=== PATIENT | female | born 1950 | race African-American/Black ===

== ENCOUNTER → 2016-07-14 | Outpatient (CLI) | payer BC, MEDICARE, OTHER ==
[~2016-07-14] MED LIST: ADVIL200 MG PO; ALEVE 220MG220 MG PO; ASPIRIN 32325 MG/TAB PO; BYSTOLIC10 MG PO; COREG12.5 MG PO; DYNACIRC CR10 MG PO; IBU800 M1 PO; LEVOTHYROXIN0.088 MG PO; NORCO 325 MG-7.1 TAB PO; TRIAMTERENE/HCT1 TAB PO; TYLENOL 500MG500 MG PO; VASOTEC 10M10 MG/TAB PO; ZOLPIDEM10 MG PO; blood pressure meds
== END ==
LOC: COL.RAD 11:43
DX: M43.16 Spondylolisthesis, lumbar region (principal)

== ENCOUNTER → 2016-07-14 | Outpatient (CLI) | payer BC, MEDICARE, OTHER | LOC: MHCPAIN 09:52 | DX: G89.29 Other chronic pain (principal); M47.817 Spondylosis without myelopathy or radiculopathy, lumbosacral region; M43.16 Spondylolisthesis, lumbar region; M53.3 Sacrococcygeal disorders, not elsewhere classified | CPT/HCPCS: G0463 ==

== ENCOUNTER 2016-07-27 09:20 | Outpatient (CLI) | payer BC, MEDICARE, OTHER ==
[~2016-07-27] VITALS: Ht 162.6 cm; Wt 68.5 kg
[~2016-07-27 09:20] MED LIST changes: -ADVIL200 MG PO; -VASOTEC 10M10 MG/TAB PO
[2016-07-27] MEDS ORDERED: ADVIL200 MG PO (09:38)
[2016-07-27] MEDS ORDERED: VASOTEC 10M10 MG/TAB PO (09:45)
[2016-07-27 09:55] VITALS: BP 168/94; PULSE 59
[2016-07-27 10:40] VITALS: BP 172/95; PULSE 59
== END 2016-07-27 13:03 | disposition home or self-care (01) ==
LOC: COL.RAD 09:20
DX: M51.27 Other intervertebral disc displacement, lumbosacral region (principal)
CPT/HCPCS: Q9965

== ENCOUNTER → 2016-08-11 | Outpatient (CLI) | payer BC, MEDICARE, OTHER ==
[~2016-08-11] MED LIST changes: +ADVIL200 MG PO; +VASOTEC 10M10 MG/TAB PO
== END ==
LOC: MHCPAIN 09:38
DX: G89.29 Other chronic pain (principal); M47.817 Spondylosis without myelopathy or radiculopathy, lumbosacral region; M54.16 Radiculopathy, lumbar region; M48.06 Spinal stenosis, lumbar region
CPT/HCPCS: G0463

== ENCOUNTER → 2016-10-13 | Outpatient (CLI) | payer BC, MEDICARE, OTHER | LOC: MHCPAIN 10:04 | DX: G89.29 Other chronic pain (principal); M47.817 Spondylosis without myelopathy or radiculopathy, lumbosacral region; M54.16 Radiculopathy, lumbar region; M53.3 Sacrococcygeal disorders, not elsewhere classified | CPT/HCPCS: G0463 ==

== ENCOUNTER → 2016-10-19 | Outpatient (CLI) | payer BC, MEDICARE, OTHER | LOC: MHCPAIN 12:10 | DX: M47.817 Spondylosis without myelopathy or radiculopathy, lumbosacral region (principal); M48.06 Spinal stenosis, lumbar region | CPT/HCPCS: J1100; Q9967 ==

== ENCOUNTER → 2016-11-17 | Outpatient (CLI) | payer BC, MEDICARE, OTHER | LOC: MHCPAIN 10:44 | DX: G89.29 Other chronic pain (principal); M47.817 Spondylosis without myelopathy or radiculopathy, lumbosacral region; M54.16 Radiculopathy, lumbar region | CPT/HCPCS: G0463 ==

== ENCOUNTER → 2016-11-23 | Outpatient (CLI) | payer BC, MEDICARE, OTHER | LOC: MHCPAIN 09:26 | DX: M47.817 Spondylosis without myelopathy or radiculopathy, lumbosacral region (principal); M48.06 Spinal stenosis, lumbar region | CPT/HCPCS: J1100; Q9967 ==

== ENCOUNTER → 2017-01-26 | Outpatient (CLI) | payer BC, MEDICARE, OTHER | LOC: MHCPAIN 09:37 | DX: G89.29 Other chronic pain (principal); M47.27 Other spondylosis with radiculopathy, lumbosacral region; M53.3 Sacrococcygeal disorders, not elsewhere classified; M17.9 Osteoarthritis of knee, unspecified; M16.10 Unilateral primary osteoarthritis, unspecified hip | CPT/HCPCS: G0463 ==

== ENCOUNTER → 2017-02-23 | Outpatient (CLI) | payer BC, MEDICARE, OTHER | LOC: MHCPAIN 10:31 | DX: G89.29 Other chronic pain (principal); M47.27 Other spondylosis with radiculopathy, lumbosacral region; M53.3 Sacrococcygeal disorders, not elsewhere classified; M16.9 Osteoarthritis of hip, unspecified; Z87.891 Personal history of nicotine dependence | CPT/HCPCS: G0463 ==

== ENCOUNTER → 2017-03-01 | Outpatient (CLI) | payer BC, MEDICARE, OTHER | LOC: MHCPAIN 12:59 | DX: M16.11 Unilateral primary osteoarthritis, right hip (principal); M70.61 Trochanteric bursitis, right hip | CPT/HCPCS: J1040; Q9967 ==

== ENCOUNTER → 2017-03-30 | Outpatient (CLI) | payer BC, MEDICARE, OTHER | LOC: MHCPAIN 11:11 | DX: G89.29 Other chronic pain (principal); M47.27 Other spondylosis with radiculopathy, lumbosacral region; M53.3 Sacrococcygeal disorders, not elsewhere classified; M16.11 Unilateral primary osteoarthritis, right hip; Z87.891 Personal history of nicotine dependence | CPT/HCPCS: G0463 ==

== ENCOUNTER → 2017-06-08 | Outpatient (CLI) | payer BC, MEDICARE, OTHER | LOC: MHCPAIN 09:53 | DX: G89.29 Other chronic pain (principal); M47.27 Other spondylosis with radiculopathy, lumbosacral region; M53.3 Sacrococcygeal disorders, not elsewhere classified; M16.11 Unilateral primary osteoarthritis, right hip | CPT/HCPCS: G0463 ==

== ENCOUNTER → 2017-08-31 | Outpatient (CLI) | payer BC, MEDICARE, OTHER | LOC: MHCPAIN 10:55 | DX: G89.29 Other chronic pain (principal); M47.817 Spondylosis without myelopathy or radiculopathy, lumbosacral region; M54.16 Radiculopathy, lumbar region; M53.3 Sacrococcygeal disorders, not elsewhere classified; M96.1 Postlaminectomy syndrome, not elsewhere classified | CPT/HCPCS: G0463 ==

== ENCOUNTER → 2017-09-20 | Outpatient (CLI) | payer BC, MEDICARE, OTHER | LOC: MHCPAIN 09:53 | DX: M47.817 Spondylosis without myelopathy or radiculopathy, lumbosacral region (principal); M43.16 Spondylolisthesis, lumbar region; M46.96 Unspecified inflammatory spondylopathy, lumbar region; M53.3 Sacrococcygeal disorders, not elsewhere classified | CPT/HCPCS: G0260; J1040; Q9967 ==

== ENCOUNTER → 2017-10-26 | Outpatient (CLI) | payer BC, MEDICARE, OTHER | LOC: MHCPAIN 10:15 | DX: G89.29 Other chronic pain (principal); M47.817 Spondylosis without myelopathy or radiculopathy, lumbosacral region; M54.16 Radiculopathy, lumbar region; M53.3 Sacrococcygeal disorders, not elsewhere classified; M16.11 Unilateral primary osteoarthritis, right hip | CPT/HCPCS: G0463 ==

== ENCOUNTER → 2017-12-21 | Outpatient (CLI) | payer BC, MEDICARE, OTHER | LOC: MHCPAIN 10:40 | DX: G89.29 Other chronic pain (principal); M47.817 Spondylosis without myelopathy or radiculopathy, lumbosacral region; M54.16 Radiculopathy, lumbar region; M53.3 Sacrococcygeal disorders, not elsewhere classified; M48.061 Spinal stenosis, lumbar region without neurogenic claudication | CPT/HCPCS: G0463 ==

== ENCOUNTER → 2018-02-22 | Outpatient (CLI) | payer BC, MEDICARE, OTHER | LOC: MHCPAIN 09:52 | DX: G89.29 Other chronic pain (principal); M47.817 Spondylosis without myelopathy or radiculopathy, lumbosacral region; M54.16 Radiculopathy, lumbar region; M53.3 Sacrococcygeal disorders, not elsewhere classified; M48.061 Spinal stenosis, lumbar region without neurogenic claudication | CPT/HCPCS: G0463 ==

== ENCOUNTER → 2018-05-08 | Outpatient (CLI) | payer BC, MEDICARE, OTHER | LOC: MHCPAIN 11:10 | DX: G89.29 Other chronic pain (principal); M47.817 Spondylosis without myelopathy or radiculopathy, lumbosacral region; M54.16 Radiculopathy, lumbar region; M53.3 Sacrococcygeal disorders, not elsewhere classified; M47.814 Spondylosis without myelopathy or radiculopathy, thoracic region; M48.061 Spinal stenosis, lumbar region without neurogenic claudication | CPT/HCPCS: G0463 ==

== ENCOUNTER → 2018-07-31 | Outpatient (CLI) | payer BC, MEDICARE, OTHER | LOC: MHCPAIN 10:48 | DX: G89.29 Other chronic pain (principal); M47.817 Spondylosis without myelopathy or radiculopathy, lumbosacral region; M54.16 Radiculopathy, lumbar region; M53.3 Sacrococcygeal disorders, not elsewhere classified; M48.061 Spinal stenosis, lumbar region without neurogenic claudication | CPT/HCPCS: G0463 ==

== ENCOUNTER → 2018-09-10 | Outpatient (CLI) | payer BC, MEDICARE, OTHER | LOC: COL.VAS 10:24 | DX: I10 Essential (primary) hypertension (principal); I34.0 Nonrheumatic mitral (valve) insufficiency ==

== ENCOUNTER → 2018-09-25 | Outpatient (CLI) | payer BC, MEDICARE, OTHER | LOC: COL.CARD 13:54 | DX: I10 Essential (primary) hypertension (principal) ==

== ENCOUNTER → 2018-10-30 | Outpatient (CLI) | payer BC, MEDICARE, OTHER | LOC: MHCPAIN 10:59 | DX: G89.29 Other chronic pain (principal); M47.817 Spondylosis without myelopathy or radiculopathy, lumbosacral region; M54.16 Radiculopathy, lumbar region; M53.3 Sacrococcygeal disorders, not elsewhere classified | CPT/HCPCS: G0463 ==

== ENCOUNTER → 2018-11-07 | Outpatient (CLI) | payer BC, MEDICARE, OTHER | LOC: MHCPAIN 10:18 | DX: M25.551 Pain in right hip (principal); M16.11 Unilateral primary osteoarthritis, right hip | CPT/HCPCS: J1040; Q9967 ==

== ENCOUNTER → 2019-02-05 | Outpatient (CLI) | payer BC, MEDICARE, OTHER | LOC: MHCPAIN 10:47 | DX: G89.29 Other chronic pain (principal); M47.817 Spondylosis without myelopathy or radiculopathy, lumbosacral region; M54.16 Radiculopathy, lumbar region; M53.3 Sacrococcygeal disorders, not elsewhere classified | CPT/HCPCS: G0463 ==

== ENCOUNTER → 2019-02-13 | Outpatient (CLI) | payer BC, MEDICARE, OTHER | LOC: MHCPAIN 14:04 | DX: M47.817 Spondylosis without myelopathy or radiculopathy, lumbosacral region (principal); M54.16 Radiculopathy, lumbar region | CPT/HCPCS: J1100; Q9967 ==

== ENCOUNTER 2019-03-14 15:48 | Emergency (ER) | payer BC, MEDICARE, OTHER ==
[2019-03-14 15:52] VITALS: PULSE 70; TEMP 98.6
[2019-03-14 17:44] LABS: BASO # 0.1 (0.0-0.2); EOS # 0.2 (0.0-0.7); EOS % 4.6 % (0-4.0); GRAN # 2.6 (1.4-6.5); GRAN % 50.3 % (42.2-75.2); HEMATOCRIT 39.2 % (37.0-47.0); HEMOGLOBIN 13.1 g/dl (12.5-16.0); LYMPH # 1.8 (1.2-3.4); LYMPH % 34.3 % (20.0-51.0); MEAN CELL VOLUME 97 fl (80.0-100.0); MEAN CORPUSCULAR HEMOGLOBIN 33 pg (27.0-31.0); MEAN CORPUSCULAR HGB CONC 33 g/dl (33.0-37.0); MEAN PLATELET VOLUME 8.6 fl (7.4-10.4); MONO # 0.5 (0.1-0.6); MONO % 9.6 % (1.7-9.3); PLATELET COUNT 266 K/mm3 (130-400); RED BLOOD COUNT 4.03 M/mm3 (4.10-5.30); REDCELL DISTRIBUTION WIDTH-CV 12.9 % (11.5-14.5)
[2019-03-14 17:50] LABS: ALBUMIN 4.2 gm/dL (3.5-5.0); BILIRUBIN,TOTAL 0.6 mg/dL (0.0-1.0); CALCIUM 9.3 mg/dL (8.4-10.2); CREATININE, serum 0.82 (0.52-1.25); POTASSIUM 4.4 mmol/L (3.4-5.0); TOTAL PROTEIN 7.6 gm/dL (6.4-8.2)
[2019-03-14 18:01] LABS: TROPONIN-I 0.013 ng/mL (0.000-0.035)
[2019-03-14] MEDS ORDERED: NORVASC 5MG5 MG/TAB PO (18:11)
[2019-03-14 18:21] VITALS: BP 152/95
== END 2019-03-14 18:28 | disposition home or self-care (01) ==
LOC: COL.ER 15:48
PROVIDERS: Emergency Medicine
DX: S00.551A Superficial foreign body of lip, initial encounter (principal); I10 Essential (primary) hypertension; M19.90 Unspecified osteoarthritis, unspecified site; Z88.0 Allergy status to penicillin; W49.04XA Ring or other jewelry causing external constriction, initial encounter

== ENCOUNTER → 2019-04-23 | Outpatient (CLI) | payer BC, MEDICARE, OTHER ==
[~2019-04-23] MED LIST changes: +NORVASC 5MG5 MG/TAB PO
== END ==
LOC: MHCPAIN 11:01
DX: M47.817 Spondylosis without myelopathy or radiculopathy, lumbosacral region (principal); M54.16 Radiculopathy, lumbar region
CPT/HCPCS: G0463

== ENCOUNTER → 2019-07-16 | Outpatient (CLI) | payer BC, MEDICARE, OTHER | LOC: MHCPAIN 10:51 | DX: M25.561 Pain in right knee (principal); M54.5 Low back pain; M47.26 Other spondylosis with radiculopathy, lumbar region | CPT/HCPCS: G0463 ==

== ENCOUNTER → 2019-07-16 | Outpatient (CLI) | payer BC, MEDICARE, OTHER | LOC: COL.RAD 11:34 | DX: M17.0 Bilateral primary osteoarthritis of knee (principal); M25.462 Effusion, left knee ==

== ENCOUNTER → 2019-07-31 | Outpatient (CLI) | payer BC, MEDICARE, OTHER | LOC: MHCPAIN 12:36 | DX: M25.562 Pain in left knee (principal); M17.0 Bilateral primary osteoarthritis of knee | CPT/HCPCS: J1040; Q9967 ==

== ENCOUNTER → 2019-10-08 | Outpatient (CLI) | payer BC, MEDICARE, OTHER | LOC: MHCPAIN 11:03 | DX: M54.5 Low back pain (principal); M54.16 Radiculopathy, lumbar region; M53.3 Sacrococcygeal disorders, not elsewhere classified | CPT/HCPCS: G0463 ==

== ENCOUNTER → 2020-01-07 | Outpatient (CLI) | payer BC, MEDICARE, OTHER | LOC: MHCPAIN 10:16 | DX: M47.817 Spondylosis without myelopathy or radiculopathy, lumbosacral region (principal); M54.5 Low back pain; M53.3 Sacrococcygeal disorders, not elsewhere classified; G89.29 Other chronic pain; M54.16 Radiculopathy, lumbar region | CPT/HCPCS: G0463 ==

== ENCOUNTER → 2020-04-07 | Outpatient (CLI) | payer BC, MEDICARE, OTHER | LOC: MHCPAIN 11:32 | DX: M25.551 Pain in right hip (principal); G89.29 Other chronic pain; M54.5 Low back pain; M25.561 Pain in right knee; M25.562 Pain in left knee; M17.0 Bilateral primary osteoarthritis of knee | CPT/HCPCS: G0463 ==

== ENCOUNTER → 2020-05-06 | Outpatient (CLI) | payer BC, MEDICARE, OTHER | LOC: MHCPAIN 12:30 | DX: M16.0 Bilateral primary osteoarthritis of hip (principal); M25.551 Pain in right hip; M17.0 Bilateral primary osteoarthritis of knee; M25.561 Pain in right knee; M25.562 Pain in left knee | CPT/HCPCS: J1040; Q9967 ==

== ENCOUNTER → 2020-07-07 | Outpatient (CLI) | payer BC, MEDICARE, OTHER | LOC: MHCPAIN 10:51 | DX: M47.817 Spondylosis without myelopathy or radiculopathy, lumbosacral region (principal); M54.16 Radiculopathy, lumbar region; M16.11 Unilateral primary osteoarthritis, right hip; M17.0 Bilateral primary osteoarthritis of knee; G89.29 Other chronic pain | CPT/HCPCS: G0463 ==

== ENCOUNTER → 2020-10-13 | Outpatient (CLI) | payer BC, MEDICARE, OTHER | LOC: MHCPAIN 10:46 | DX: M25.561 Pain in right knee (principal); M25.551 Pain in right hip; M53.3 Sacrococcygeal disorders, not elsewhere classified; G89.29 Other chronic pain | CPT/HCPCS: G0463 ==

== ENCOUNTER → 2020-10-21 | Outpatient (CLI) | payer BC, MEDICARE, OTHER | LOC: MHCPAIN 10:37 | DX: M16.11 Unilateral primary osteoarthritis, right hip (principal); M17.11 Unilateral primary osteoarthritis, right knee; M25.551 Pain in right hip; M25.561 Pain in right knee | CPT/HCPCS: J1040; Q9967 ==

== ENCOUNTER → 2021-01-12 | Outpatient (CLI) | payer BC, MEDICARE, OTHER | LOC: MHCPAIN 10:46 | DX: M47.817 Spondylosis without myelopathy or radiculopathy, lumbosacral region (principal); M54.5 Low back pain; M53.3 Sacrococcygeal disorders, not elsewhere classified; M16.11 Unilateral primary osteoarthritis, right hip; M17.0 Bilateral primary osteoarthritis of knee | CPT/HCPCS: G0463 ==

== ENCOUNTER → 2021-02-18 | Outpatient (CLI) | payer BC, MEDICARE, OTHER | LOC: MC.RAD 12:38 | DX: Z12.31 Encounter for screening mammogram for malignant neoplasm of breast (principal) ==

== ENCOUNTER → 2021-03-23 | Outpatient (CLI) | payer BC, MEDICARE, OTHER | LOC: MHCPAIN 10:49 | DX: M47.817 Spondylosis without myelopathy or radiculopathy, lumbosacral region (principal); M17.0 Bilateral primary osteoarthritis of knee; M16.11 Unilateral primary osteoarthritis, right hip; G89.29 Other chronic pain | CPT/HCPCS: G0463 ==

== ENCOUNTER → 2021-04-07 | Outpatient (CLI) | payer BC, MEDICARE, OTHER | LOC: MHCPAIN 13:35 | DX: M25.551 Pain in right hip (principal); M25.562 Pain in left knee; M16.11 Unilateral primary osteoarthritis, right hip; M17.12 Unilateral primary osteoarthritis, left knee | CPT/HCPCS: G0260; J1040; Q9967 ==

== ENCOUNTER 2021-08-05 16:37 | Emergency (ER) | payer BC, MEDICARE, OTHER ==
[~2021-08-05] VITALS: Ht 160 cm; Wt 66.8 kg
[2021-08-05 16:51] VITALS: TEMP 97.8
[2021-08-05 19:03] LABS: BASO # 0.1 K/mm3 (0.0-0.2); BASO % 1.1 % (0.0-2.0); EOS # 0.2 K/mm3 (0.0-0.7); EOS % 3.7 % (0.0-4.0); GRAN # 2.8 K/mm3 (1.4-6.5); GRAN % 44.4 % (42.2-75.2); HEMATOCRIT 36.3 % (37.0-47.0); HEMOGLOBIN 12.1 g/dl (12.5-16.0); LYMPH # 2.6 K/mm3 (1.2-3.4); LYMPH % 41.6 % (20.0-51.0); MEAN CELL VOLUME 92 fl (80.0-100.0); MEAN CORPUSCULAR HEMOGLOBIN 31 pg (27-31); MEAN CORPUSCULAR HGB CONC 33 g/dl (33.0-37.0); MEAN PLATELET VOLUME 8.3 fl (7.4-10.4); MONO # 0.6 K/mm3 (0.1-0.6); PLATELET COUNT 403 K/mm3 (130-400); RED BLOOD COUNT 3.95 M/mm3 (4.10-5.30); REDCELL DISTRIBUTION WIDTH-CV 13.9 % (11.5-14.5)
[2021-08-05 19:24] LABS: ALANINE AMINOTRANSFERASE 17 U/L (0-55); ALBUMIN 3.9 gm/dL (3.4-4.8); ALKALINE PHOSPHATASE 97 U/L (40-150); ANION GAP 11 mmol/L (7-16); AST,SGOT 15 U/L (5-34); BILIRUBIN,TOTAL 0.4 mg/dL (0.2-1.2); BLOOD UREA NITROGEN 16 mg/dL (10-20); CALCIUM 9.5 mg/dL (8.4-10.2); CARBON DIOXIDE 26 mmol/L (23-31); CHLORIDE 105 mmol/L (98-107); CREATININE, serum 0.81 mg/dL (0.57-1.11); GLUCOSE 94 mg/dL (70-99); POTASSIUM 3.9 mmol/L (3.5-4.5); SODIUM 142 mmol/L (136-145); TOTAL PROTEIN 7.8 gm/dL (6.2-8.1)
[2021-08-05 19:44] LABS: TROPONIN-I < 0.010 ng/mL (0.00-0.033)
[2021-08-05 20:14] LABS: COLLECTION METHOD CLEAN CATCH
[2021-08-05 20:23] LABS: PH 7 (5-8); URINE APPEARANCE Clear (CLEAR/HAZY); URINE BACTERIA None Seen /hpf (NONE SEEN); URINE BILIRUBIN Negative (NEGATIVE); URINE BLOOD Negative (NEGATIVE); URINE COLOR Yellow (YELLOW); URINE GLUCOSE Negative (NEGATIVE); URINE KETONE Negative (NEGATIVE); URINE LEUKOCYTE ESTERASE Negative (NEGATIVE); URINE NITRATE Negative (NEGATIVE); URINE PROTEIN(semi-quant) Negative (NEGATIVE); URINE RBC 0-2 /hpf (0-2); URINE UROBILINOGEN Negative (NEGATIVE)
[2021-08-05] MEDS ORDERED: CATAPRES0.3 MG PO (20:55)
[2021-08-05] MEDS ORDERED: DOXYCYCLINE 10100 MG PO (20:59)
[2021-08-05 22:02] VITALS: BP 153/99; PULSE 78
== END 2021-08-05 22:10 | disposition home or self-care (01) ==
LOC: COL.ER 16:37
PROVIDERS: Physician Assistant
DX: I16.0 Hypertensive urgency (principal); J32.9 Chronic sinusitis, unspecified; J06.9 Acute upper respiratory infection, unspecified; Z20.822 Contact with and (suspected) exposure to COVID-19
CPT/HCPCS: J0360; J2405; J7030

== ENCOUNTER → 2021-10-05 | Outpatient (CLI) | payer BC, MEDICARE, OTHER ==
[~2021-10-05] MED LIST changes: +CATAPRES0.3 MG PO; +DOXYCYCLINE 10100 MG PO
== END ==
LOC: MHCPAIN 10:53
DX: M47.817 Spondylosis without myelopathy or radiculopathy, lumbosacral region (principal); M53.3 Sacrococcygeal disorders, not elsewhere classified; M16.11 Unilateral primary osteoarthritis, right hip; M17.0 Bilateral primary osteoarthritis of knee; M79.2 Neuralgia and neuritis, unspecified
CPT/HCPCS: G0463

== ENCOUNTER → 2022-01-04 | Outpatient (CLI) | payer OTHER, MEDICARE | LOC: MHCPAIN 12:53 | DX: M47.817 Spondylosis without myelopathy or radiculopathy, lumbosacral region (principal); M43.16 Spondylolisthesis, lumbar region; M16.11 Unilateral primary osteoarthritis, right hip; M54.16 Radiculopathy, lumbar region | CPT/HCPCS: G0463 ==

== ENCOUNTER → 2022-03-15 | Outpatient (CLI) | payer OTHER, MEDICARE | LOC: MHCPAIN 13:03 | DX: M47.817 Spondylosis without myelopathy or radiculopathy, lumbosacral region (principal); M79.2 Neuralgia and neuritis, unspecified; M54.16 Radiculopathy, lumbar region | CPT/HCPCS: G0463 ==

== ENCOUNTER → 2022-08-16 | Outpatient (CLI) | payer OTHER, MEDICARE | LOC: MHCPAIN 13:19 | DX: M16.11 Unilateral primary osteoarthritis, right hip (principal); M53.3 Sacrococcygeal disorders, not elsewhere classified; M79.2 Neuralgia and neuritis, unspecified; M17.0 Bilateral primary osteoarthritis of knee; M48.062 Spinal stenosis, lumbar region with neurogenic claudication | CPT/HCPCS: G0463 ==

== ENCOUNTER → 2023-01-31 | Outpatient (CLI) | payer OTHER, MEDICARE | LOC: MHCPAIN 13:21 | DX: M79.2 Neuralgia and neuritis, unspecified (principal); M16.11 Unilateral primary osteoarthritis, right hip; M54.16 Radiculopathy, lumbar region; M17.0 Bilateral primary osteoarthritis of knee | CPT/HCPCS: G0463 ==

== ENCOUNTER → 2023-08-09 | Outpatient (CLI) | payer OTHER, MEDICARE ==
[~2023-08-09] MED LIST changes: +Iohexol 300 - 10 ML VIAL ONE
== END ==
LOC: MHCPAIN 13:02
DX: M16.11 Unilateral primary osteoarthritis, right hip (principal); M17.12 Unilateral primary osteoarthritis, left knee
CPT/HCPCS: J0665; J1040; Q9967

== ENCOUNTER → 2024-01-23 | Outpatient (CLI) | payer OTHER, MEDICARE ==
[~2024-01-23] MED LIST changes: -Iohexol 300 - 10 ML VIAL ONE
== END ==
LOC: MHCPAIN 13:22
DX: M43.16 Spondylolisthesis, lumbar region (principal); M48.061 Spinal stenosis, lumbar region without neurogenic claudication; M51.36 Other intervertebral disc degeneration, lumbar region; M16.11 Unilateral primary osteoarthritis, right hip
CPT/HCPCS: G0463